=== PATIENT | female | born 1965 | race Caucasian/White ===

== ENCOUNTER 2019-01-05 17:06 | Emergency (ER) | payer OTHER ==
[~2019-01-05] VITALS: Ht 170.2 cm; Wt 101.7 kg
[2019-01-05 17:49] LABS: CULTURE INDICATED? YES; MICROSCOPIC INDICATED
[2019-01-05 18:28] LABS: BASOPHILS # (AUTO) 0.06 x10^3/uL (0-0.1); BASOPHILS % (AUTO) 1 % (0-1); EOSINOPHILS # (AUTO) 0.31 x10^3/uL (0-0.4); EOSINOPHILS % (AUTO) 4 % (1-7); LYMPHOCYTES # (AUTO) 2.41 x10^3/uL (1-3.4); LYMPHOCYTES % (AUTO) 31 % (22-44); MD NO; MEAN CORPUSCULAR HEMOGLOBIN 30.1 pg (27.0-34.8); MEAN CORPUSCULAR VOLUME 88.4 fL (80-100); MEAN PLATELET VOLUME 8.7 fL (7.4-10.4); MONOCYTES # (AUTO) 0.66 x10^3/uL (0.2-0.8); MONOCYTES % (AUTO) 8 % (2-9); NEUTROPHILS # (AUTO) 4.47 x10^3/uL (1.8-6.8); NEUTROPHILS % (AUTO) 57 % (42-75); PLATELET COUNT 309 x10^3/uL (130-400); RED BLOOD COUNT 4.56 x10^6/uL (3.82-5.3); RED CELL DISTRIBUTION WIDTH 13.6 % (9.6-15.2)
[2019-01-05 18:34] LABS: ALANINE AMINOTRANSFERASE 30 U/L (12-78); ALBUMIN 3.7 g/dL (3.4-5.0); ANION GAP 6 mmol/L (5-15); CALCIUM 8.8 mg/dL (8.5-10.1); CHLORIDE 111 mmol/L (98-107); CREATININE 0.64 mg/dL (0.55-1.02)
[2019-01-05 18:37] LABS: ALKALINE PHOSPHATASE 66 U/L (45-117); BILIRUBIN,TOTAL 0.4 mg/dL (0.2-1.0); TOTAL PROTEIN 6.7 g/dL (6.4-8.2)
--- NOTE | 2019-01-05 20:11 | NUR ---
pt called to room from lobby
--- NOTE | 2019-01-05 20:33 | NUR ---
FIRST CONTACT W/ PT. PT PRESENTS TO ED C/O RL ABD PAIN W/ INREASED FREQUENCY OF URINATION AND "LESS COMES OUT"xMULTIPLE MONTHS. DENIES FLANK PAIN OR FURTHER GI/ SYMTPOMS. DENIES FEVERS. MONITORING APPLIED. VSS. ALL RESULTS BACK. PT UP FOR RECHECK.
[2019-01-05] MEDS ORDERED: ONDANSETRON 2MG/ML, 2ML IVPush ONE (21:00)
[2019-01-05] MEDS ORDERED: MORPHINE SULFATE 4 MG/ML, 1ML IVPush PRN (21:00)
[2019-01-05] MEDS ORDERED: KETOROLAC 30 MG/1 ML IVPush ONE (21:00)
[2019-01-05] MEDS ORDERED: MORPHINE SULFATE 4 MG/ML, 1ML ONE (21:09)
[2019-01-05] MEDS ORDERED: ONDANSETRON 2MG/ML, 2ML ONE (21:09)
[2019-01-05] MEDS ORDERED: KETOROLAC 30 MG/1 ML ONE (21:09)
--- NOTE | 2019-01-05 22:01 | NUR ---
pt came to ct with 20g in left ac that's questionable. flushed with saline and site raised. start [address] for [address] , sent patient back to ER with iv.
[2019-01-05] MEDS ORDERED: OMNIPAQUE 350 MG/ML, 100ML BOTTLE ONE (22:07)
--- NOTE | 2019-01-05 22:51 | NUR ---
Assist RN: patient discharged with prescriptions and instruction. verbalized understanding.
[2019-01-05 22:52] VITALS: BP 113/75
== END 2019-01-05 22:54 | disposition home or self-care (01) ==
LOC: ED 22:48
DX: N30.00 Acute cystitis without hematuria (principal); Z90.49 Acquired absence of other specified parts of digestive tract
CPT/HCPCS: 36415; 74177; 76830; 80053; 81001; 83690; 85025; 87086; 96374; 96375; 99284; J1885; J2405; Q9967